=== PATIENT | female | born 1980 | race Caucasian/White ===

== ENCOUNTER 2016-12-30 20:03 | Emergency (ER) | payer MEDICAID ==
[~2016-12-30] VITALS: Ht 152.4 cm; Wt 72.5 kg
[~2016-12-30 20:03] MED LIST: FERR27TA PO; METF500T4 PO; PREN1TAB49 PO
[2016-12-30 21:05] VITALS: Ht 152.4 cm; Wt 72.5 kg
[2016-12-30] MEDS ORDERED: SOD CHLORIDE 0.9% 500 ML IV STA (21:59)
[2016-12-30] MEDS ORDERED: KETOROLAC 30 MG INJ IV STA (21:59)
[2016-12-30] MEDS ORDERED: ONDANSETRON 4 MG INJ IV STA (21:59)
[2016-12-30 22:35] LABS: ADD SCAN DIFF NO
[2016-12-30 22:37] LABS: BASOPHILS % 0.1 % (0.0-2.0); EOSINOPHILS % 0.4 % (0.0-7.0); HEMATOCRIT 44.9 % (37.0-47.0); HEMOGLOBIN 15.1 g/dl (12.0-16.0); LYMPHOCYTES # 1.9 10^3/ul (0.8-2.9); LYMPHOCYTES % 20.2 % (15.0-51.0); MEAN CORPUSCULAR HEMOGLOBIN 28.3 pg (29.0-33.0); MEAN CORPUSCULAR HGB CONC 33.6 g/dl (32.0-37.0); MEAN CORPUSCULAR VOLUME 84.2 fl (82.0-101.0); MEAN PLATELET VOLUME 9.6 fl (7.4-10.4); MONOCYTE # 0.6 10^3/ul (0.3-0.9); MONOCYTES % 6.4 % (0.0-11.0); NEUTROPHIL # 6.7 10^3/ul (1.6-7.5); NEUTROPHILS % 72.6 % (39.0-77.0); PLATELET COUNT 334 10^3/UL (140-415); RED BLOOD COUNT 5.33 10^6/ul (4.20-5.40); RED CELL DISTRIBUTION WIDTH 12.8 % (11.5-14.5); WHITE BLOOD COUNT 9.2 10^3/ul (4.8-10.8)
[2016-12-30 22:44] LABS: ALBUMIN 4.2 g/dl (3.3-4.9)
[2016-12-30 22:47] LABS: ALBUMIN/GLOBULIN RATIO 1.13; BILIRUBIN,INDIRECT 1.5 mg/dl (0-1.1); BILIRUBIN,TOTAL 1.5 mg/dl (0.2-1.3); CREATININE 0.44 mg/dl (0.44-1.00); TOTAL PROTEIN 7.9 g/dl (6.1-8.1)
[2016-12-30 22:48] LABS: CALCIUM 8.8 mg/dl (8.4-10.2)
[2016-12-30 22:49] LABS: INR 0.94; PARTIAL THROMBOPLASTIN TIME 27.7 Sec (25.0-35.0); PROTIME 12.6 Sec (12.2-14.2)
[2016-12-30 23:13] LABS: ADD UMIC YES; URINE BILIRUBIN (Dip) NEGATIVE (NEGATIVE); URINE BLOOD (Dip) TRACE (NEGATIVE); URINE COLOR YELLOW (YELLOW); URINE KETONES (Dip) TRACE (NEGATIVE); URINE LEUKOCYTE ESTERASE (Dip) NEGATIVE (NEGATIVE); URINE NITRITE (Dip) NEGATIVE (NEGATIVE); URINE TOTAL PROTEIN (Dip) TRACE (NEGATIVE); URINE UROBILINOGEN (Dip) 1.0 E.U./dL (0.1-1.0)
--- NOTE | 2016-12-30 23:19 | RADRPT ---
PROCEDURE: XR Abdomen. CLINICAL INDICATION: Abdominal pain TECHNIQUE: Supine AP views of the abdomen. COMPARISON: None. FINDINGS: Gas and stool are seen within nondilated large bowel. There are no dilated loops of small bowel to suggest a bowel obstruction. No abnormal calcifications are identified. The patient is status post cholecystectomy. IMPRESSION: 1. Nonobstructive bowel gas pattern. 2. Status post cholecystectomy. RPTAT: HTAR .Keven Stock MD, MD Date Time Electronically viewed and signed by .Keven Stock MD, MD on 12/30/2016 23:19 .R/
[2016-12-30 23:25] LABS: SQUAMOUS EPITHELIAL CELL,UR FEW; URINE RBCS 0-2 /HPF (0)
[2016-12-30] MEDS ORDERED: POTASSIUM CHLORIDE (SR) 20 MEQ TAB PO STA (23:34)
[2016-12-31] MEDS ORDERED: METO10TA92 PO (00:36)
[2016-12-31 00:59] VITALS: BP 102/63; PULSE 79; RESP 17; TEMP 98.7
--- NOTE | 2016-12-31 01:06 | ERD ---
ER Documentation Chief Complaint Date/Time DATE: 12/31/16 TIME: 01:02 Chief Complaint AP since last night with fever, Nauseated HPI 36-year-old previously healthy female presenting with left upper quadrant pain for about 24 hours. Her pain started after eating a meal. Her nuchlg-fc-ics has similar symptoms. She has had multiple episodes of nausea and nonbloody and nonbilious vomiting. Her pain is aching, nonradiating, without associated fevers or chills. She does endorse associated gradual onset headache that comes and goes. She denies any diarrhea or constipation. No dysuria. ROS All systems reviewed and are negative except as per history of present illness. Medications Home Meds Active Scripts Metoclopramide* (Reglan*) 10 Mg Tablet, 10 MG PO Q6 Y for NAUSEA AND/OR VOMITING , #10 TAB Prov:TOD HYLTON MD 12/31/16 Metformin* (Glucophage*) 500 Mg Tab, 500 MG PO BID, #60 TAB Prov:JANNETTE FAULKNER PA-C 01/30/16 Reported Medications Ferrous Sulfate (Iron) 1 Tab Tablet, 1 TAB PO 01/26/12 Vits W-Ca,Fe,Fa(<1MG) () 1 Tab Tablet, 1 TAB PO 01/26/12 Allergies Allergies: Coded Allergies: No Known Drug Allergies (Verified Allergy, Unknown, 01/03/15) PMhx/Soc History of Surgery: Yes (cholecystectomy) Anesthesia Reaction: No Hx Neurological Disorder: No Hx Respiratory Disorders: No Hx Cardiac Disorders: No Hx Psychiatric Problems: No Hx Miscellaneous Medical Probl: Yes (gestational diabetes) Hx Alcohol Use: No Hx Substance Use: No Hx Tobacco Use: No Smoking Status: Never smoker FmHx Family History: No diabetes Physical Exam Vitals Vital Signs Date Time Temp Pulse Resp B/P Pulse Ox O2 Delivery O2 Flow Rate FiO2 12/30/16 21:05 99.0 93 20 148/63 99 Physical Exam Const: Well-appearing, no distress Head: Atraumatic Eyes: Normal Conjunctiva ENT: Normal External Ears, Nose and Mouth. Neck: Full range of motion. No meningismus. Resp: Clear to auscultation bilaterally Cardio: Regular rate and rhythm, no murmurs Abd: Soft, mild tenderness to palpation in the left upper quadrant, no rebound or guarding, non distended. Hyperactive bowel sounds Skin: No petechiae or rashes Back: No midline or flank tenderness Ext: No cyanosis, or edema Neur: Awake and alert, cranial nerves intact, strength and sensations intact in all 4 extremities Psych: Normal Mood and Affect Result Diagram: 12/30/16221412/30/162214 Results 24 hrs Laboratory Tests Test 12/30/16 22:10 12/30/16 22:15 Urine Color YELLOW Urine Clarity CLEAR Urine pH 5.5 Urine Specific [place] 1.025 Urine Ketones TRACE Urine Nitrite NEGATIVE Urine Bilirubin NEGATIVE Urine Urobilinogen 1.0 E.U./dL Urine Leukocyte Esterase NEGATIVE Urine Microscopic RBC 0-2/HPF Urine Microscopic WBC 0-2/HPF Urine Squamous Epithelial Cells FEW Urine Hemoglobin TRACE Urine Glucose 0.1%% Urine Total Protein TRACE White Blood Count 9.210^3/ul Red Blood Count 5.3310^6/ul Hemoglobin 15.1g/dl Hematocrit 44.9% Mean Corpuscular Volume 84.2fl Mean Corpuscular Hemoglobin 28.3pg Mean Corpuscular Hemoglobin Concent 33.6g/dl Red Cell Distribution Width 12.8% Platelet Count 46702^3/UL Mean Platelet Volume 9.6fl Neutrophils % 72.6% Lymphocytes % 20.2% Monocytes % 6.4% Eosinophils % 0.4% Basophils % 0.1% Nucleated Red Blood Cells % 0.0/100WBC Neutrophils # 6.710^3/ul Lymphocytes # 1.910^3/ul Monocytes # 0.610^3/ul Eosinophils # 0.010^3/ul Basophils # 0.010^3/ul Nucleated Red Blood Cells # 0.010^3/ul Prothrombin Time 12.6Sec Prothrombin Time Ratio 1.0 INR International Normalized Ratio 0.94 Activated Partial Thromboplast Time 27.7Sec Sodium Level 142mmol/L Potassium Level 3.0mmol/L Chloride Level 100mmol/L Carbon Dioxide Level 27mmol/L Anion Gap 18 Blood Urea Nitrogen 12mg/dl Creatinine 0.44mg/dl Glucose Level 110mg/dl Calcium Level 8.8mg/dl Total Bilirubin 1.5mg/dl Direct Bilirubin 0.00mg/dl Indirect Bilirubin 1.5mg/dl Aspartate Amino Transf (AST/SGOT) 30IU/L Alanine Aminotransferase (ALT/SGPT) 32IU/L Alkaline Phosphatase 122IU/L Total Protein 7.9g/dl Albumin 4.2g/dl Globulin 3.70g/dl Albumin/Globulin Ratio 1.13 Lipase 48U/L Serum HCG, Qualitative NEGATIVE Current Medications Medications (Trade) Dose Ordered Sig/Livan Route PRN Reason Start Time Stop Time Status Last Admin Dose Admin Sodium Chloride (NS) 500 ml @ 500 mls/hr Q1H STAT IV 12/30/16 21:59 12/30/16 22:58 DC 12/30/16 22:21 Ondansetron HCl (Zofran Inj) 4 mg ONCE STAT IV 12/30/16 21:59 12/30/16 22:01 DC 12/30/16 22:21 Ketorolac Tromethamine (Toradol) 30 mg ONCE STAT IV 12/30/16 21:59 12/30/16 22:01 DC 12/30/16 22:21 Potassium Chloride (Klor-Con 20) 40 meq ONCE STAT PO 12/30/16 23:34 12/30/16 23:36 DC 12/30/16 23:45 Procedures/MDM Patient is presenting with left upper quadrant pain with associated nausea and vomiting. Her vitals are stable and she is afebrile. I do not suspect acute intracranial abnormality. There is no evidence of serious bacterial infection. Her labs did not show any significant abnormalities other than hypokalemia which is likely secondary to her vomiting. Her urinalysis was normal. Her KUB was normal. She was given medication for her vomiting. At this moment the etiology of the abdominal pain is unknown. The patients vitals have been noted and are currently afebrile and hemodynamically stable. The workup, physical exam and observation period do not indicate a serious cause to the pain. The patients symptoms have improved while in the ED and the patient remains hemodynamically stable. Patient was able to tolerate PO. The current assessment has been explained to the patient including the fact that the etiology of the pain cannot be ruled out with certainty. Patient was advised that in the event this is early in the process of a more serious condition they may expect their symptoms to worsen and if so to return to the emergency department immediately. Patient was advised to follow up with primary care physician as soon as possible for re-evaluation within the next 1- 2 days. All of the patients questions were answered. Patient verbalized understanding of plan and agrees. Advised to return to the ER for reevaluation within 12 hours if symptoms worsen. Departure Diagnosis: Primary Impression: Abdominal pain Abdominal location: left upper quadrant Qualified Code: R10.12 - Left upper quadrant pain Additional Impressions: Nausea and vomiting Vomiting type: unspecified Vomiting Intractability: non-intractable Qualified Code: R11.2 - Non-intractable vomiting with nausea, unspecified vomiting type Hypokalemia Condition: Stable Patient Instructions: Nausea and Vomiting-Adult, Abdominal Pain, Unknown Cause , (Female) Additional Instructions: Regrese a la casie de emergencias para cualquier sntoma que empeora en las pr ximas 8-12 horas. OTD HYLTON MD Dec 31, 2016 01:06
== END 2016-12-31 00:59 | disposition home or self-care (01) ==
LOC: FTE 20:03
DX: R10.12 Left upper quadrant pain (principal); R11.2 Nausea with vomiting, unspecified; E87.6 Hypokalemia; Z79.84 Long term (current) use of oral hypoglycemic drugs
CPT/HCPCS: 36415; 74000; 80053; 81001; 83690; 84703; 85025; 85610; 85730; 96361; 96374; 96375; J1885; J2405; J7040; Z7502; Z7610; 81003